=== PATIENT | male | born 1980 | race Caucasian/White ===

== ENCOUNTER 2018-06-16 12:01 | Emergency (ER) | payer MEDICAID ==
[2018-06-16] MEDS: DIPHENHYDRAMINE 25 MG CAP PO (12:36)
[2018-06-16] MEDS: predniSONE 20 MG TAB PO (12:36)
== END 2018-06-16 12:54 | disposition home or self-care (01) ==
LOC: FTE 12:01
DX: R21 Rash and other nonspecific skin eruption (principal)
CPT/HCPCS: 99283; J7512

== ENCOUNTER 2018-10-26 11:53 | Emergency (ER) | payer OTHER, MEDICAID | END 2018-10-26 12:39 | disposition home or self-care (01) | LOC: FTE 11:53 | DX: R05 Cough (principal) | CPT/HCPCS: 99283; Z7502 ==

== ENCOUNTER 2019-01-02 14:44 | Emergency (ER) | payer OTHER | END 2019-01-02 16:07 | disposition home or self-care (01) | LOC: FTE 14:44 | DX: M54.9 Dorsalgia, unspecified (principal) | CPT/HCPCS: 99283; Z7502 ==